=== PATIENT | female | born 1950 | race Caucasian/White ===

== ENCOUNTER 2025-01-23 10:53 | Day surgery (SDC) | payer MEDICARE, SELFPAY ==
[2025-01-23] VITALS (14 sets, daily range): BP systolic 103–130; BP diastolic 69–91; PULSE 63–91; RESP 16–18; TEMP 36.6–37.4; O2SAT 93–97; BMI 28.0
[2025-01-23] MEDS: SODIUM CHLORIDE 0.9 % (FLUSH) 10 ML SYRINGE IVF (11:40)
[2025-01-23] MEDS: LACTATED RINGERS 1000 ML 1,000 ML 100 ML IV ×2 (11:40→13:24)
[2025-01-23] MEDS: MIDAZOLAM HCL 1 MG/ML inj IVP (12:01)
--- NOTE | 2025-01-23 12:03 | SUR.PREOP ---
TIME?OUT:?1200 PT/RN/MDA?VERIFICATION?OF?SURGICAL?SITE,?PROCEDURE,?AND?CONSENT OBTAINED?PRIOR?TO?INVASIVE?PROCEDURE. all in agreement
--- NOTE | 2025-01-23 12:30 | CRLHL7_ITS ---
For Patients: As a result of the Century Cures Act, medical imaging exams and procedure reports are released immediately into your electronic medical record. You may view this report before your referring provider. If you have questions, please contact your health care provider. Indication: LT ORIF ANKLE Technique: Two fluoroscopic images left ankle. Fluoroscopic time 73.6 seconds. IMPRESSION: Fluoroscopic guidance for ORIF distal fibula and distal tibia. Dictated by Mo Faust MD @ 01/23/2025 3:58:12 PM (Electronically Signed)
--- NOTE | 2025-01-23 14:57 | P.NB_ITS ---
Nerve Block Nerve Block Time Seen by Provider: 12:00 Date Seen: 01/23/25 Type of block requested by surgeon for post-operative analgesia: adductor canal Side: left Time out performed: Yes Verification of patient name: Yes Verification of date of : Yes Site marking: site marked Name of person performing procedure: Steve Continuous monitoring Was continuous monitoring of O2 sat, B/P, library monitor, recorded every 15 minutes?: Yes Procedure Checklist: sterile prep, needles and gloves Ultrasound guided. Images saved: Yes Medications given in 5ml increments after negative aspiration: Marcaine %: 0.25 mL: 15 Needle gauge: 20 Patient tolerated procedure well: Yes Block Charges Block Charge (with Pro Fee): Femoral Nerve Use of Ultrasound Machine for Block: Yes- US Guidance/pain block
--- NOTE | 2025-01-23 14:58 | P.NB_ITS ---
Nerve Block Nerve Block Time Seen by Provider: 12:00 Date Seen: 01/23/25 Type of block requested by surgeon for post-operative analgesia: popliteal Side: left Time out performed: Yes Verification of patient name: Yes Verification of date of : Yes Site marking: site marked Name of person performing procedure: Steve Continuous monitoring Was continuous monitoring of O2 sat, B/P, site monitor, recorded every 15 minutes?: Yes Procedure Checklist: sterile prep, needles and gloves Ultrasound guided. Images saved: Yes Medications given in 5ml increments after negative aspiration: Marcaine %: 0.25 mL: 20 Needle gauge: 20 Patient tolerated procedure well: Yes Additional comments: Needle noted adjacent to nerve Block Charges Block Charge (with Pro Fee): Sciatic Nerve Use of Ultrasound Machine for Block: Yes- US Guidance/pain block
--- NOTE | 2025-01-23 14:59 | P.ANES_ITS ---
Anesthesia Charges Start Date/Time Anesthesia Start Date: 01/23/25 Anesthesia Start Time: 12:13 Stop Date/Time Anesthesia Stop Date: 01/23/25 Anesthesia Stop Time: 16:16 Summary Extremes of Age - Over 70 or under 1: MDA Coding CPT Codes CPT Codes: ANESTH LOWER LEG BONE SURG - 46705 ([id number]) P2 - PATIENT W/MILD SYST DISEASE, QK - VELVET CUTTER 2-4 CNCRNT ANES PROC, QX - FLIPPING MACHINE OPERATOR SVC W/ MD MED DIRECTION Additional Codes: Summary - Extremes of Age - Over 70 or under 1: MDA ([id number])
--- NOTE | 2025-01-23 14:59 | W.ANESCHARGE ---
Anesthesia Charges Start Date/Time Anesthesia Start Date: 01/23/25 Anesthesia Start Time: 12:13 Stop Date/Time Anesthesia Stop Date: 01/23/25 Anesthesia Stop Time: 16:16 Summary Extremes of Age - Over 70 or under 1: MDA Coding CPT Codes CPT Codes: ANESTH LOWER LEG BONE SURG - 67059 ([id number]) P2 - PATIENT W/MILD SYST DISEASE, QK - HYDROELECTRIC COMPONENT MACHINIST 2-4 CNCRNT ANES PROC, QX - FRONT FACER SVC W/ MD MED DIRECTION Additional Codes: Summary - Extremes of Age - Over 70 or under 1: MDA ([id number])
--- NOTE | 2025-01-23 16:17 | P.ANES_ITS ---
Anesthesia Charges Start Date/Time Anesthesia Start Date: 01/23/25 Anesthesia Start Time: 12:13 Stop Date/Time Anesthesia Stop Date: 01/23/25 Anesthesia Stop Time: 16:16 Summary Extremes of Age - Over 70 or under 1: ASPHALT MIXING MACHINE OPERATOR Coding CPT Codes CPT Codes: ANESTH LOWER LEG BONE SURG - 13021 ([id number]) P2 - PATIENT W/MILD SYST DISEASE, QK - CHIROPRACTIC TEACHER 2-4 CNCRNT ANES PROC, QX - ASPHALT MIXING MACHINE OPERATOR SVC W/ MD MED DIRECTION Additional Codes: Summary - Extremes of Age - Over 70 or under 1: ASPHALT MIXING MACHINE OPERATOR ([id number])
--- NOTE | 2025-01-23 16:17 | W.ANESCHARGE ---
Anesthesia Charges Start Date/Time Anesthesia Start Date: 01/23/25 Anesthesia Start Time: 12:13 Stop Date/Time Anesthesia Stop Date: 01/23/25 Anesthesia Stop Time: 16:16 Summary Extremes of Age - Over 70 or under 1: FIELD ARTILLERY CREWMEMBER Coding CPT Codes CPT Codes: ANESTH LOWER LEG BONE SURG - 02537 ([id number]) P2 - PATIENT W/MILD SYST DISEASE, QK - MIXED CROP FARMER 2-4 CNCRNT ANES PROC, QX - FIELD ARTILLERY CREWMEMBER SVC W/ MD MED DIRECTION Additional Codes: Summary - Extremes of Age - Over 70 or under 1: FIELD ARTILLERY CREWMEMBER ([id number])
--- NOTE | 2025-01-23 16:24 | W.PODPROC_ITS ---
Date of Procedure: 01/23/25 Surgeon: Rey Driscoll DPM Pre-op Diagnosis: Left trimalleolar ankle fracture Post-op Diagnosis: Left trimalleolar ankle fracture Type of Procedure: ORIF left trimalleolar ankle fracture with posterior malleolar fixation Indications: Patient sustained a left trimalleolar ankle fracture after a fall. There was significant impaction of the posterior medial fragment with comminution of the medial malleolus. There was significant displacement of the fibular fracture. She is in need of surgical intervention. I reviewed the procedure, recovery, expectations and potential complications. These include but are limited to: Poor wound healing, infection, continued pain, nerve injury, arterial injury, complex regional pain syndrome, potentially future surgery, nonunion, delayed union, malunion, hardware irritation or failure, deep venous thrombosis, pulmonary embolism and possible . Procedure Description: Patient was given a preoperative popliteal and adductor block by Anesthesia. She was then brought to the operating room and placed in supine position on operating table. General anesthesia was administered and she was prepped and draped in a sterile fashion. Standard time-out protocol followed. Left limb was exsanguinated and the tourniquet inflated to 300 mm Hg. Linear incisions made over the lateral malleolus the left ankle. The incision was carried down through skin subcutaneous tissue. Periosteal incision was then made in the fracture site identified. Peroneal nerve was identified and carefully retracted throughout the case. Fracture was distracted and the debris from within the fracture sites was removed with a curette. There is a anterior fracture fragment in addition to the distal lateral malleolar fragment. I was able to separate the fragment and evaluate the ankle joint. Posterior malleolar fracture fragment was identified and Brook was used to elevate the periosteum within the fracture site of the posterior malleolus. The fracture laterally. The endoscope was used to evaluate the articular surface and no cartilaginous injury was noted to the talus. Once that fibular fracture was freed up and reducible we then turned our attention to the medial ankle. A linear incision is made along the posterior tibial tendon distally and then angled slightly anterior S this the course of the medial tibia. Incision was carried down through skin subcutaneous tissues. The fascia was released at the level of the posterior tibial muscle. The fascia was reflected away from the tibia and the muscle belly of the tibialis posterior was retracted inferiorly. The periosteum was incised on the posterior medial tibia and the large fragment was easily identified from the posterior malleolus. This periosteum was reflected and the fracture was debrided. The large reduction clamp the posterior malleolar fragment was then reduced into anatomic alignment. It was pinned in place with 1.3 mm K-wires. C-arm confirmed excellent anatomic alignment of the posterior malleolar fragment. Blunt dissection was then carried down between the posterior tibial tendon and the flexor digitorum longus tendon creating a separate plane to the posterior malleolus. With the tibialis posterior re flected anteriorly but not released distally at the flexor retinaculum. A 1/3 tubular plate was then applied posteriorly. And anchored with 3.5 mm nonlocking screws x2 proximal to the fracture. Two additional screws were then placed distally across the fracture. C-arm confirmed anatomic alignment and excellent fixation. The wound was irrigated normal sterile saline. We turned our attention now to the distal fibula. Fibular fracture was then reduced into anatomic alignment also holding the anterior fracture fragment reduced. There is no room for a leg screw and therefore a distal locking plate was applied. 3.5 mm nonlocking screw was placed proximal to the fracture and bring the plate to bone. 3.0 mm locking screws x3 placed distally and x2 were placed proximally. Multiple C-arm images confirmed anatomic alignment the ankle mortise and the fibular fracture. The medial malleolus was then further evaluated was found to be comminuted. To ensure stability a hook plate was placed medially. After being tamped into place C-arm confirming position 3.5 mm nonlocking screw was placed in the slotted hole create additional compression. 3.5 mm locking screw was then placed proximal. Final C-arm images confirmed excellent anatomic alignment. Hardware in appropriate position. Cotton test revealed stable syndesmosis. Wounds were all irrigated normal sterile saline. Target was released and all bleeding vessels cauterized. The fascia over the tibialis posterior muscle belly and tendon were repaired with 3-0 Vicryl. Periosteum laterally was closed with 3-0 Vicryl subcutaneous tissues reapproximated 3-0 Vicryl the skin closed with aaron. Sterile dressing was then applied. She was placed in a well-padded cam boot. She was transferred from OR to PACU vital signs stable vascular status intact the left foot. She will be discharged per same-day surgery protocol. She was given oxycodone for pain. Both written and verbal postop instructions given. Follow up in clinic next week. Anesthesia: GETA and regional Hemostasis: thigh Estimated blood loss (mL): 30 Implants: Arthrex 1/3 tubular plate x1, Arthrex distal fibular locking plate x1, Arthrex medial malleolus hook plate x1, 3.5 mm nonlocking screws times 6, 3.5 mm locking screws times 3, 3.0 mm locking screws x3 Specimens: none sent Disposition: same day
== END 2025-01-23 17:40 | disposition home or self-care (01) ==
LOC: OR 10:58
PROVIDERS: PCP Family Medicine; Visit Provider Podiatrist
PROC: (CPT 27823; principal; 2025-01-23 12:30)
DX: S82.852A Displaced trimalleolar fracture of left lower leg, initial encounter for closed fracture (principal); G89.18 Other acute postprocedural pain
CPT/HCPCS: 27823; 01480; 64445; 64447; 73600; 76000; 76942; 99100; C1713; J0665; J0690; J1100; J1171; J2250; J2371; J2405; J2704; J3010; J7120